=== PATIENT | female | born 1990 | race Caucasian/White ===

== ENCOUNTER 2016-11-01 11:58 | Emergency (ER) | payer BC ==
[2016-11-01 12:37] VITALS: BP 120/83
--- NOTE | 2016-11-01 12:46 | UC ---
Throat Pain/Nasal Angel HPI - HPI Summary HPI Summary: complaint of nasal congestion and cough that started 7 days ago started to have sore throat night intermittent headache dx with URI at [facility] 10/30/16 denies ear pain thinks she might have had a fever denies N/V/D taking OTC cold and flu medicine with some relief tried tussin DM without relief - History of Current Complaint Stated Complaint: SORE THROAT COUGH Time Seen by Provider: 11/01/16 12:35 Hx Obtained From: Patient Hx Last Menstrual Period: 10/21/16 - Allergies/Home Medications Allergies/Adverse Reactions: Allergies Allergy/AdvReac Type Severity Reaction Status Date / Time No Known Allergies Allergy Verified 11/01/16 12:37 Home Medications: Home Medications NK [No Home Medications Reported] 11/01/16 [History Confirmed 11/01/16] PMH/Surg Hx/FS Hx/Imm Hx Previously Healthy: No - uri - Surgical History Surgical History: Yes Surgery Procedure, Year, and Place: Ear Tubes as a child. , [facility] - Family History Known Family History: Positive: None, Unknown Negative: Diabetes - Social History Occupation: Employed Full-time Lives: With Family Alcohol Use: None Substance Use Type: None Smoking Status (MU): Former Smoker Type: Cigarettes Length of Time of Smoking/Using Tobacco: 3 Years Have You Smoked in the Last Year: No When Did the Patient Quit Smoking/Using Tobacco: 2012 - Immunization History Most Recent Influenza Vaccination: January 2014 Review of Systems Constitutional: Negative Skin: Negative Eyes: Negative ENT: Sore Throat, Nasal Discharge Respiratory: Cough Cardiovascular: Negative Gastrointestinal: Negative Genitourinary: Negative Motor: Negative Neurovascular: Negative Musculoskeletal: Negative Neurological: Negative Psychological: Negative All Other Systems Reviewed And Are Negative: Yes Physical Exam Triage Information Reviewed: Yes Appearance: No Pain Distress, Well-Nourished Vital Signs: Initial Vital Signs Temp 98.6 F 11/01/16 12:32 Pulse 56 11/01/16 12:32 Resp 16 11/01/16 12:32 BP 120/83 11/01/16 12:32 Pulse Ox 100 11/01/16 12:32 Vital Signs Reviewed: Yes Eyes: Positive: Conjunctiva Clear ENT: Positive: Pharyngeal erythema, Nasal congestion, TMs normal, Other: - no sinus tenderness. Negative: TM bulging, TM red Neck: Positive: No Lymphadenopathy Respiratory: Positive: Lungs clear, Normal breath sounds, No respiratory distress Cardiovascular: Positive: RRR, No Murmur, Pulses Normal Abdomen Description: Positive: Nontender, Soft Bowel Sounds: Positive: Present Musculoskeletal: Positive: No Edema Neurological: Positive: Alert Psychological Exam: Normal Skin Exam: Normal Throat Pain/Nasal Course/Dx - Differential Dx/Diagnosis Differential Diagnosis/HQI/PQRI: Pharyngitis, URI Provider Diagnoses: URI, pharyngitis Discharge - Discharge Plan Condition: Stable Disposition: HOME Patient Education Materials: Upper Respiratory Infection (ED) Additional Instructions: PHARYNGITIS (Sore Throat) What is Pharyngitis? The medical name for a sore throat is Pharyngitis. It is caused by an infection or irritation of your throat or tonsils. The infection can be caused by a virus or by bacteria. Not everyone with Pharyngitis needs antibiotics. Antibiotics will not make viral infections better, and they will not help a sore throat caused by irritation. Symptoms May Include: Sore throat Swelling of the glands in the neck Trouble or pain with swallowing Fever Headache Cough Extreme tiredness Ear pain Treatment Recommendations: Gargle every few hours with a solution of 1/4 teaspoon of salt dissolved in 1/ 2 cup of warm water. Drink plenty of warm beverages, like tea with lemon, (with or without honey) and soup. You may eat and drink cold foods and liquids like frozen yogurt, popsicles, and ice water if that makes your throat feel better. The goal is to keep you well hydrated. Use a "cool-mist" vaporizer or humidifier in the room where you spend most of your time. If you get a sore throat often, consider adding an electronic air filter and humidifier to your furnace system. Don't smoke. Do not eat spicy foods. Take medicine exactly as prescribed. If you do not think it is helping, call your healthcare provider. Do not increase how much or how often you take it without getting their OK first. Non-prescription anti-inflammatory medicine like ibuprofen (Motrin, Advil) or naproxen (Aleve) may help lessen the pain. You should not take these medicines if you have had bleeding in your stomach in the past. Acetaminophen ( Tylenol) is another choice of medicine that may help the pain. If pain medicine that makes you tired or sleepy or contains narcotics is prescribed, you should not drink, drive, or participate in any other activities that you need to be clear-headed for. Please keep all medicines out of the reach of children. Do not get in close contact with anyone you know who has a sore throat. Use throat lozenges (Cepostat, [place], etc.) or suck on hard candy for temporary relief of the pain with swallowing. (Do not give to children under age 5.) Call Your Doctor or Return Here IF: Your symptoms do not start to get better within 7 days or you become worse. You have a fever over 101.0 F orally. You cant swallow liquids or saliva. You are drooling. You start to have trouble breathing. You start to have a rash. You start to have a stiff neck. You start to have pain in your chest. You start to have any symptoms that are new or worry you.
== END 2016-11-01 13:14 | disposition home or self-care (01) ==
LOC: UCCORT 11:58
DX: J06.9 Acute upper respiratory infection, unspecified (principal); J02.9 Acute pharyngitis, unspecified; Z87.891 Personal history of nicotine dependence
CPT/HCPCS: 87651; 99212; G0463

== ENCOUNTER 2017-09-08 12:28 | Emergency (ER) | payer BC ==
[2017-09-08 12:48] VITALS: BP 126/70
--- NOTE | 2017-09-08 13:08 | ED ---
GI/ HPI - HPI Summary HPI Summary: 26 yr old female presents here with feeling like she has mild edema to the hands, and she is a week late for her period. No abdominal pain at this point. Had mild cramping over past day or so, but no sever pain in pelvis. No bleeding, no vaginal discharge, no fever or chills. The patient has been having increased frequency of urination, breast tenderness , fatigue. She took a home test a few days ago that is positive. She had a D and C for a demise at 14 weeks in the past; she had a c section at 37 weeks with her last due to late development of pre eclampsia. - History of Current Complaint Chief Complaint: UCGeneralIllness Time Seen by Provider: 09/08/17 12:44 Stated Complaint: - HANDS/FEET SWELLING/CRAMPS Hx Last Menstrual Period: end of July Pain Intensity: 3 - Allergy/Home Medications Allergies/Adverse Reactions: Allergies Allergy/AdvReac Type Severity Reaction Status Date / Time No Known Allergies Allergy Verified 09/08/17 12:41 PMH/Surg Hx/FS Hx/Imm Hx - Surgical History Surgery Procedure, Year, and Place: Ear Tubes as a child. , 2013, [facility] Infectious Disease History: No Infectious Disease History: Denies: History Other Infectious Disease, Traveled Outside the [place] in Last 30 Days - Family History Known Family History: Positive: None, Unknown Negative: Diabetes - Social History Lives: With Family Alcohol Use: None Substance Use Type: Reports: None Smoking Status (MU): Former Smoker Type: Cigarettes Length of Time of Smoking/Using Tobacco: 3 Years Have You Smoked in the Last Year: No Review of Systems Constitutional: Negative Positive: frequency. Negative: burning, dysuria, discharge, flank pain, hematuria, incontinence, pain, urgency Positive: Edema - mild diffusely All Other Systems Reviewed And Are Negative: Yes Physical Exam Triage Information Reviewed: Yes Vital Signs On Initial Exam: Initial Vitals Temp Pulse Resp BP Pulse Ox 98.6 F 92 18 126/70 99 09/08/17 12:42 09/08/17 12:42 09/08/17 12:42 09/08/17 12:42 09/08/17 12:42 Vital Signs Reviewed: Yes Appearance: Positive: Well-Appearing, No Pain Distress Skin: Positive: Warm, Skin Color Reflects Adequate Perfusion Head/Face: Positive: Normal Head/Face Inspection Eyes: Positive: EOMI ENT: Positive: Normal ENT inspection Neck: Positive: Nontender Respiratory/Lung Sounds: Positive: Clear to Auscultation, Breath Sounds Present Cardiovascular: Positive: RRR. Negative: Murmur Abdomen Description: Positive: Nontender. Negative: CVA Tenderness (R), CVA Tenderness (L) Musculoskeletal: Positive: Strength/ROM Intact, Other - no noticable edema to the legs or arms.. Negative: Edema Left, Edema Right Neurological: Positive: Sensory/Motor Intact, Alert, Oriented to Person Place, Time, CN Intact II-III, Normal Gait, Speech Normal Psychiatric: Positive: Normal - [place] Coma Scale Best Eye Response: 4 - Spontaneous Best Motor Response: 6 - Obeys Commands Best Verbal Response: 5 - Oriented Coma Scale Total: 15 Diagnostics - Vital Signs Vital Signs Temp Pulse Resp BP Pulse Ox 09/08/17 12:42 98.6 F 92 18 126/70 99 - Laboratory Lab Results: Lab Results 09/08/17 09/08/17 Range/Units 12:54 12:57 POC Urine Color Yellow POC Urine Clarity Clear POC Urine pH 5.5 (5-9) POC Ur Specif Guion <= 1.005 L (1.010-1.030) POC Urine Protein Negative (Negative) POC Ur Glucose (UA) Negative (Negative) POC Urine Ketones Negative (Negative) POC Urine Blood Negative (Negative) POC Urine Nitrite Negative (Negative) POC Urine Bilirubin Negative (Negative) POC Urine Urobilinogen 0.2 (Negative) POC U Leukocyte Esteras Negative (Negative) POC Ur Test Positive A (Negative) Lab Statement: Any lab studies that have been ordered have been reviewed, and results considered in the medical decision making process. GIGU Course/Dx - Course Course Of Treatment: 26 yr old with early . No UTI. Neg urine dip. - Diagnoses Provider Diagnoses: Discharge - Sign-Out/Discharge Documenting (check all that apply): Discharge/Admit/Transfer - Discharge Plan Condition: Good Disposition: HOME Patient Education Materials: (ED) Referrals: Valdez Mena MD [Primary Care Provider] - 2 Days Edu Sheridan MD [Medical Doctor] - As Soon As Possible - Billing Disposition and Condition Condition: GOOD Disposition: HOME
== END 2017-09-08 13:17 | disposition home or self-care (01) ==
LOC: UCCORT 12:28
DX: Z32.01 Encounter for pregnancy test, result positive (principal); Z87.891 Personal history of nicotine dependence
CPT/HCPCS: 81003; 84702; 99211; G0463

== ENCOUNTER 2017-09-12 20:03 | Emergency (ER) | payer BC ==
[2017-09-12 20:23] VITALS: BP 122/60
--- NOTE | 2017-09-12 20:33 | UC ---
Complaint Female HPI - HPI Summary HPI Summary: Pt c/o sudden onset of dysuria X 4 hours. Pt is 6 weeks . - History Of Current Complaint Stated Complaint: URINARY Hx Obtained From: Patient Hx Last Menstrual Period: end of 07/2017 ?: Yes Onset/Duration: Sudden Onset Timing: Constant Severity Initially: Mild Severity Currently: Mild Pain Intensity: 0 Character: Burning Aggravating Factor(s): Urination Alleviating Factor(s): Nothing Associated Signs And Symptoms: Positive: Negative - Risk Factors Ectopic Risk Factor: Negative Ovarian Torsion Risk Factor: Negative - Allergies/Home Medications Allergies/Adverse Reactions: Allergies Allergy/AdvReac Type Severity Reaction Status Date / Time No Known Allergies Allergy Verified 09/12/17 20:23 Home Medications: Home Medications Vitamin TAB* 1 tab PO DAILY 09/12/17 [History Confirmed 09/12/17] PMH/Surg Hx/FS Hx/Imm Hx Previously Healthy: Yes - Surgical History Surgical History: Yes Surgery Procedure, Year, and Place: Ear Tubes as a child. , 2012, [facility] - Family History Known Family History: Positive: None, Unknown Negative: Diabetes - Social History Occupation: Employed Full-time Lives: With Family Alcohol Use: None Substance Use Type: None Smoking Status (MU): Former Smoker Type: Cigarettes Length of Time of Smoking/Using Tobacco: 3 Years Have You Smoked in the Last Year: No When Did the Patient Quit Smoking/Using Tobacco: 2012 - Immunization History Most Recent Influenza Vaccination: January 2014 Review of Systems Constitutional: Negative Skin: Negative Eyes: Negative ENT: Negative Respiratory: Negative Cardiovascular: Negative Gastrointestinal: Negative Genitourinary: Dysuria, Frequency, Urgency Motor: Negative Neurovascular: Negative Musculoskeletal: Negative Neurological: Negative Psychological: Negative Is Patient Immunocompromised?: No All Other Systems Reviewed And Are Negative: Yes Physical Exam Triage Information Reviewed: Yes Appearance: Well-Appearing Vital Signs: Initial Vital Signs Temp 98.1 F 09/12/17 20:18 Pulse 69 09/12/17 20:18 Resp 17 09/12/17 20:18 BP 122/60 09/12/17 20:18 Pulse Ox 100 09/12/17 20:18 Vital Signs Reviewed: Yes Eye Exam: Normal ENT Exam: Normal ENT: Positive: Hearing grossly normal Neck exam: Normal Respiratory: Positive: No respiratory distress Abdomen Description: Positive: Nontender Musculoskeletal Exam: Normal Neurological Exam: Normal Psychological Exam: Normal Skin Exam: Normal Complaint Female Dx - Differential Dx/Diagnosis Differential Diagnosis/HQI/PQRI: Urinary Tract Infection Provider Diagnoses: UTI Discharge - Sign-Out/Discharge Documenting (check all that apply): Discharge/Admit/Transfer - Discharge Plan Condition: Stable Disposition: HOME Prescriptions: Cephalexin CAP* [Keflex 500 CAP*] 500 mg PO Q12H #14 cap Patient Education Materials: Urinary Tract Infection in Women (ED) Referrals: Valdez Mena MD [Primary Care Provider] - If Needed - Billing Disposition and Condition Condition: STABLE Disposition: HOME
[2017-09-12] MEDS ORDERED: Cephalexin CAP* 500 MG PO ONE (20:35)
== END 2017-09-12 20:45 | disposition home or self-care (01) ==
LOC: UCCORT 20:03
DX: N39.0 Urinary tract infection, site not specified (principal); Z87.891 Personal history of nicotine dependence
CPT/HCPCS: 81003; 87077; 87086; 87186; 99212; A9270-GY; G0463

== ENCOUNTER 2017-10-07 08:58 | Emergency (ER) | payer BC ==
[2017-10-07 09:55] VITALS: BP 121/66
--- NOTE | 2017-10-07 10:49 | UC ---
Throat Pain/Nasal Angel HPI - HPI Summary HPI Summary: 26 y/o female presents to the urgent care c/o sore throat and Rt side ear pain since last night. Pt states pain w/ swallowing is 4/10. Pt has not taking anything to alleviate symptoms since she is 10 weeks . LMP: 07/09/2017. Pt also states nasal congestion w/ clear nasal discharge. Pt denies fever, cough , SOB, chest pain, abdominal pain, N/V/D. - History of Current Complaint Chief Complaint: UCGeneralIllness Stated Complaint: COUGH/ST Time Seen by Provider: 10/07/17 10:46 Hx Obtained From: Patient Hx Last Menstrual Period: end of 07/2017 ?: Yes Onset/Duration: Gradual Onset, Lasting Days - 1 day, Still Present, Worse Since - this morning Severity: Moderate Pain Intensity: 4 Pain Scale Used: 0-10 Numeric Cough: None Associated Signs & Symptoms: Positive: Dysphagia, Nasal Discharge - clear. Negative: Fever - Epiglottits Risk Factors Epiglottis Risk Factors: Negative - Allergies/Home Medications Allergies/Adverse Reactions: Allergies Allergy/AdvReac Type Severity Reaction Status Date / Time No Known Allergies Allergy Verified 09/12/17 20:23 Home Medications: Home Medications Doxylamine Succinate [Unisom] 25 mg PO DAILY 10/07/17 [History Confirmed ] Pyridoxine HCl (Vitamin B6) [Vitamin B-6] 25 mg PO DAILY 10/07/17 [History Confirmed 10/07/17] PMH/Surg Hx/FS Hx/Imm Hx Previously Healthy: Yes - Pt denies PMHX - Surgical History Surgical History: Yes Surgery Procedure, Year, and Place: Ear Tubes as a child. , 2013, [facility]. D&C - Family History Known Family History: Positive: None - Pt denies FMHX Negative: Diabetes - Social History Occupation: Employed Full-time Lives: With Family Alcohol Use: None Substance Use Type: None Smoking Status (MU): Former Smoker Type: Cigarettes Length of Time of Smoking/Using Tobacco: 3 Years Have You Smoked in the Last Year: No When Did the Patient Quit Smoking/Using Tobacco: 2012 - Immunization History Most Recent Influenza Vaccination: January 2014 Review of Systems Constitutional: Negative Skin: Negative Eyes: Negative ENT: Sore Throat, Ear Ache - RT ear pain, Nasal Discharge - clear Respiratory: Negative Cardiovascular: Negative Gastrointestinal: Negative Genitourinary: Negative Motor: Negative Neurovascular: Negative Musculoskeletal: Negative Neurological: Negative Psychological: Negative Is Patient Immunocompromised?: No All Other Systems Reviewed And Are Negative: Yes Physical Exam - Summary Physical Exam Summary: VITAL SIGNS: Reviewed. GENERAL: Patient is a well developed and nourished female who is sitting comfortable in the examining table. Patient is not in any acute respiratory distress. HEAD AND FACE: No signs of trauma. No ecchymosis, hematomas or skull depressions. No sinus tenderness. EYES: PERRLA, EOMI x 2, No injected conjunctiva, no nystagmus. No photophobia. EARS: Hearing grossly intact. Ear canals and tympanic membranes are within normal limits. MOUTH: Positive pharynx with erythema, exudates, palatal petechiae. B/L tonsillar enlargement with exudate. Uvula in midline. NECK: Supple, trachea is midline, Positive anterior cervical lymphadenopathy, no JVD, no carotid bruit, no c-spine tenderness, neck with full ROM. No meningeal signs, no Kernig's or brudzinskis signs. CHEST: Symmetric, no tenderness at palpation LUNGS: Clear to auscultation bilaterally. No wheezing or crackles. CVS: Regular rate and rhythm, S1 and S2 present, no murmurs or gallops appreciated. ABDOMEN: Soft, non-tender. No signs of distention. No rebound no guarding, and no masses palpated. Bowel sounds are normal. EXTREMITIES: FROM in all major joints, no edema, no cyanosis or clubbing. NEURO: Alert and oriented x 3. No acute neurological deficits. Speech is normal and follows commands. SKIN: Dry and warm Triage Information Reviewed: Yes Vital Signs: Initial Vital Signs Temp 98.6 F 10/07/17 09:50 Pulse 81 10/07/17 09:50 Resp 16 10/07/17 09:50 BP 121/66 10/07/17 09:50 Pulse Ox 100 10/07/17 09:50 Throat Pain/Nasal Course/Dx - Course Course Of Treatment: 26 y/o female presents to the urgent care c/o sore throat and Rt side ear pain since last night. Pt states pain w/ swallowing is 4/10. Pt has not taking anything to alleviate symptoms since she is 10 weeks . LMP: 07/09/2017. Pt also states nasal congestion w/ clear nasal discharge. Pt denies fever, cough, SOB, chest pain, abdominal pain, N/V/D.Hx obtained. Pt w/ pharyngitis on examination. Rapid strep ordered, result: negative. Viral pharyngitis.Pt Rx ibuprofen PO to alleviates symptoms of pain and swelling. Advised on hand washing to avoid spreading. Pt advised to rest, eat well and avoid strenuous exercise. If symptoms do not improve or worsen advised to return to the urgent care or f/u with her PCP for further evaluation and treatment. Pt understood and agreed - Differential Dx/Diagnosis Differential Diagnosis/HQI/PQRI: Laryngitis, Mononucleosis, Pharyngitis, Tonsillitis, URI Provider Diagnoses: 1- Viral pharyngitis Discharge - Sign-Out/Discharge Documenting (check all that apply): Discharge/Admit/Transfer - D/C home - Discharge Plan Condition: Stable Disposition: HOME Patient Education Materials: Pharyngitis (ED) Referrals: Valdez Mena MD [Primary Care Provider] - 3 Days Additional Instructions: 1-Please take Tylenol PO q6-8hrs prn as instructed after meals to alleviate pain and swelling. Increase fluid intake, eat well, rest and avoid strenuous exercise 2-If symptoms do not improve or worsen please return to the urgent care or f/u with your PCP for further evaluation and treatment. - Billing Disposition and Condition Condition: STABLE Disposition: HOME
== END 2017-10-07 11:28 | disposition home or self-care (01) ==
LOC: UCCORT 08:58
DX: J02.8 Acute pharyngitis due to other specified organisms (principal); Z87.891 Personal history of nicotine dependence
CPT/HCPCS: 87651; 99211; G0463

== ENCOUNTER 2018-04-28 05:55 | Inpatient (IN) | payer BC, OTHER ==
[~2018-04-28 05:55] MED LIST: Buffered Lidocaine 0.9% SYRIN* 5 ML/SYR SYRINGE INTRADERM ONE; ceFOXitin 2 GM IVPREMIX* 2 GM/50 ML BAG IVPB SCH
[2018-04-28] MEDS ORDERED: Lactated Ringers 1000 ML Bag* 1,000 ML IV SCH ×2 (06:00→09:00)
[2018-04-28] MEDS ORDERED: Famotidine IV* 10 MG/ML 2 ML (20 mg) IV ONE (06:00)
[2018-04-28] MEDS ORDERED: Morphine PF AMP (0.5MG/ML)* 5 MG/10 ML AMP ONE (07:35)
[2018-04-28] MEDS ORDERED: KETAMINE HCL* 50 MG/ML 10 ML VIAL ONE (07:35)
[2018-04-28] MEDS ORDERED: fentaNYL* 50 MCG/ML 2 ML VIAL (100 MCG VIAL) ONE (07:35)
[2018-04-28] MEDS ORDERED: Midazolam* 1 MG/ML 5 ML VIAL (5 MG) ONE (07:35)
[2018-04-28] MEDS: Scopolamine 1.5 mg* PATCH TRANSDERM PRN (08:00)
[2018-04-28] MEDS ORDERED: oxyCODONE/Acetamin 5/325 MG* TAB PO PRN ×2 (08:19→08:55)
[2018-04-28] MEDS ORDERED: DiMENhydriNATE IV* 50 MG/ML VIAL IV PUSH PRN (08:19)
[2018-04-28] MEDS ORDERED: Naloxone* 2 MG in NS 0.9% 250 ML* 250 ML IV PRN (08:19)
[2018-04-28] MEDS ORDERED: Nalbuphine* 10 MG/ML 1 ML VIAL IV PRN (08:19)
[2018-04-28] MEDS ORDERED: Ondansetron INJ* 2 MG/ML VIAL IV PRN (08:19)
[2018-04-28] MEDS ORDERED: Naloxone* 0.4 MG/ML 1 ML VIAL IV PRN ×2 (08:19→08:21)
[2018-04-28] MEDS ORDERED: PROCHLORPERAZINE INJ 5 MG/ML 2 ML VIAL IV PRN (08:19)
[2018-04-28] MEDS ORDERED: fentaNYL* 50 MCG/ML 2 ML VIAL (100 MCG VIAL) IV PRN (08:21)
[2018-04-28] MEDS ORDERED: Witch Hazel PAD* JAR TOPICAL PRN (08:55)
[2018-04-28] MEDS ORDERED: Dibucaine 1% 28.35 GM TUBE PR PRN (08:55)
[2018-04-28] MEDS ORDERED: Glycerin ADULT SUPP PR PRN (08:55)
[2018-04-28] MEDS: Docusate CAP* 100 MG PO SCH ×3 (09:00→20:59)
[2018-04-28] MEDS ORDERED: PROCHLORPERAZINE INJ 5 MG/ML 2 ML VIAL ONE (09:01)
[2018-04-28] MEDS ORDERED: Dexamethasone IV* 4 MG/ML 1 ML (4 MG) ONE (09:01)
[2018-04-28] MEDS ORDERED: Bupivacaine-MPF SPINAL* 7.5 MG/ML - 2ML AMP ONE (09:01)
[2018-04-28] MEDS ORDERED: EPHEDrine (Pressors)* 50 MG/ML VIAL ONE (09:01)
[2018-04-28] MEDS ORDERED: Bupivacaine 0.25% SDV PF* 10 ML VIAL INJ ONE (09:01)
[2018-04-28] MEDS ORDERED: Scopolamine 1.5 mg* PATCH ONE (09:01)
[2018-04-28] MEDS ORDERED: Ketorolac INJ* 30 MG/ML 1 ML VIAL ONE (09:01)
[2018-04-28] MEDS ORDERED: Glycopyrrolate IV* 0.2 MG/ML 1 ML VIAL ONE (09:01)
[2018-04-28] MEDS ORDERED: Ondansetron INJ* 2 MG/ML VIAL ONE (09:01)
[2018-04-28] MEDS ORDERED: Lidocaine 2% PF * 5 ML VIAL ONE (09:01)
[2018-04-28] MEDS ORDERED: Phenylephrine INJ* 10 MG/ML 1 ML VIAL (10 MG) ONE (09:01)
[2018-04-28] MEDS: Simethicone TAB* 80 MG TAB.CHEW PO SCH ×3 (12:59→20:59)
[2018-04-28] MEDS: Ketorolac INJ* 30 MG/ML 1 ML VIAL IV PRN ×2 (16:48→23:50)
[2018-04-29] MEDS: Ibuprofen TAB* 600 MG PO PRN ×3 (00:01→12:48)
[2018-04-29] MEDS ORDERED: diPHENhydraMINE PO* 25 MG PO ONE (01:00)
[2018-04-29] MEDS: oxyCODONE/Acetamin 5/325 MG* TAB PO PRN ×4 (04:12→17:09)
[2018-04-29 06:46] LABS: ABS Basophils 0.1 10^3/ul (0-0.2); ABS Eosinophils 0 10^3/ul (0-0.6); ABS Lymphocytes 1.5 10^3/ul (1.0-4.8); ABS Neutrophils 9.9 10^3/ul (1.5-7.7); ABS Nucleated RBC 0 10^3/ul; Eosinophil % 0.4 %; Hematocrit 25 % (35-47); Hemoglobin 8.2 g/dl (12.0-16.0); Lymphocyte % 12.3 %; Mean Corpuscular HGB Conc 32 g/dl (31-36); Mean Corpuscular Hemoglobin 27 pg (27-31); Mean Corpuscular Volume 84 fL (80-97); Mean Platelet Volume 9.2 fL (7.4-10.4); Nucleated Red Blood Cells % 0; Platelet Count 190 10^3/ul (150-450); Red Blood Count 3.01 10^6/ul (4.00-5.40); Red Cell Distribution Width 16 % (10.5-15); White Blood Count 12.5 10^3/ul (3.5-10.8)
[2018-04-29] MEDS ORDERED: Ammonia Inhalant* 1 EA AMP ONE (07:25)
[2018-04-29] MEDS: Ferrous Gluconate TAB* 324 MG TAB PO SCH (08:19)
[2018-04-29] MEDS: Simethicone TAB* 80 MG TAB.CHEW PO SCH ×4 (08:20→19:43)
[2018-04-29] MEDS: Docusate CAP* 100 MG PO SCH ×3 (08:20→19:39)
--- NOTE | 2018-04-29 10:43 | OP ---
DATE OF OPERATION: 04/28/18 - ROOM #116 DATE OF : 89 SURGEON: Nimco Amor MD [employer] OPERATIONS SPECIALIST: Mi Campo CNM, and Martina Burrell ANESTHESIOLOGIST: Dr. Vogel. ANESTHESIA: Spinal. PRE-OPERATIVE DIAGNOSIS: Intrauterine at 39-0/7 week, desires repeat section. POST-OPERATIVE DIAGNOSIS: Intrauterine at 39-0/7 week, desires repeat section, delivered; dense anterior uterine wall adhesions. OPERATIVE PROCEDURE: Repeat low transverse section with vacuum extraction and lysis of adhesions. ESTIMATED BLOOD LOSS: 500 cc. URINE OUTPUT: 200 cc. FLUIDS: 2300 cc of crystalloid. FINDINGS: Revealed a vertex male Apgars 9 at one minute, 9 at five minutes, weight is 7 pounds 13 ounces. No meconium. Three-vessel cord, placenta intact, manually extracted. Uterine cavity without evidence of retained placental tissue or membranes. Normally palpated tubes and ovaries. There is a dense anterior uterine wall adhesion to the peritoneum, which was reduced with two separate pedicles. Omental adhesion above this, which was reduced. COMPLICATIONS: None apparent. DISPOSITION: Stable to recovery room. DESCRIPTION OF PROCEDURE: The patient was placed in dorsal lithotomy position. Abdomen was prepped and draped in a sterile standard fashion. Anesthesia was tested to appropriate level. The patient was identified with universal protocol. After documenting adequate level of the anesthesia, incision was made with scalpel through prior incision. This was then carried down through to the fascia. Fascia was scored in the midline and extended laterally and superiorly using curved Sheridan scissors. The peritoneum was entered bluntly. At this point , we noted her to have a dense anterior uterine wall adhesion in the lower third of the uterus and not at the lower uterine segment site. Bladder blade was inserted. The lower uterine segment was tented up with an Allis. An incision was made with scalpel. This was carried down through. Incision was extended laterally and superiorly using bandage scissors. Amniotomy was cleared for clear fluid. 's head was delivered with vacuum assistance. Anterior posterior shoulder delivered. Cord was allowed to pulsate and was milked for approximately 60 seconds. Cord was then doubly clamped and cut. The was handed to awaiting hepatology physician, Dr. Martinez. Appropriate cord blood was then obtained. Placenta was then manually extracted. Uterine cavity was explored, was noted to be free of any membranes or more placental tissue and the uterine incision itself was approximated using in 2 layers, first layer a running locked 0-Vicryl, second layer running imbricated. At that point, the anterior uterine wall adhesions were delineated. A Erica was placed across the base and back-clamped with a Erica, transected with Sheridan scissors and suture ligated in a Marina fashion using 0-Vicryl, on both afferent and efferent pedicles. There was a second adhesion, which was isolated and clamped with Erica again x2, transected with Sheridan scissors and suture ligated again using 0- Vicryl, which was just adjacent to the other adhesion. Both afferent and efferent pedicles were tied off in a Marina fashion. The 2 areas were imbricated in a [id number] fashion for complete burying of the 2 separate pedicles and hemostasis was noted. There was a small omental adhesion noted to the anterior surface of the uterus above these adhesions and this was also clamped, back clamped with Erica, transected sharply and suture was ligated using 3-0 Vicryl. The peritoneum was then identified clearly, clamped with Erica's and colic gutters were lavaged. Hemostasis was assured. The hysterectomy site and the resection site and the peritoneum was then reapproximated using 3-0 Vicryl in a running fashion. Subfascial area was visualized. Hemostasis was assured and the fascia was then reapproximated using 0-Vicryl x2 in a running fashion. Fascia was then reapproximated using 0 Vicryl x2 in a running fashion. Subcutaneous tissue was lavaged. Hemostasis assured and the skin was then reapproximated using 4-0 Monocryl in a subcuticular fashion. Mastisol and Steri -Strips were applied. All sponge, instruments, and blade counts were correct throughout the case. The patient tolerated the procedure well and went to recovery room in stable condition. [id number]/[facility] #: [id number] CYRIL
[2018-04-29] MEDS: Scopolamine 1.5 mg* PATCH TRANSDERM PRN (18:16)
[2018-04-29] MEDS ORDERED: Ondansetron ODT TAB* 4 MG SL PRN (19:15)
[2018-04-29] MEDS ORDERED: Ondansetron ODT TAB* 4 MG ONE (19:20)
[2018-04-29] MEDS ORDERED: Ondansetron INJ* 2 MG/ML VIAL IV PRN (20:05)
[2018-04-29] MEDS: Ketorolac INJ* 30 MG/ML 1 ML VIAL IV PUSH PRN (20:32)
[2018-04-29] MEDS ORDERED: Lactated Ringers 1000 ML Bag* 1,000 ML IV SCH (21:00)
[2018-04-30] MEDS: Ketorolac INJ* 30 MG/ML 1 ML VIAL IV PUSH PRN (04:18)
[2018-04-30] MEDS: Docusate CAP* 100 MG PO SCH ×2 (12:14→21:36)
[2018-04-30] MEDS: Ferrous Gluconate TAB* 324 MG TAB PO SCH ×2 (12:14→21:35)
[2018-04-30] MEDS: Simethicone TAB* 80 MG TAB.CHEW PO SCH ×3 (12:14→21:36)
[2018-04-30] MEDS: Acetaminophen TAB* 325 MG PO PRN ×2 (17:57→21:36)
[2018-05-01] MEDS: Acetaminophen TAB* 325 MG PO PRN ×3 (01:29→12:42)
[2018-05-01 07:47] VITALS: BP 135/77
[2018-05-01] MEDS ORDERED: Scopolamine PATCH Remove* 1 NOTE MISC PATCH OFF PRN (08:20)
[2018-05-01] MEDS: Docusate CAP* 100 MG PO SCH (08:27)
[2018-05-01] MEDS: Simethicone TAB* 80 MG TAB.CHEW PO SCH ×3 (08:27→12:42)
[2018-05-01] MEDS: Ferrous Gluconate TAB* 324 MG TAB PO SCH (08:27)
== END 2018-05-01 13:44 | disposition home or self-care (01) | DRG 540 ==
LOC: MCHOB 05:55
PROVIDERS: ADMIT Obstetrics & Gynecology; ATTEND Obstetrics & Gynecology
PROC: 4A1HXCZ Monitoring of Products of Conception, Cardiac Rate, External Approach (ICD-10-PCS; 2018-04-28)
PROC: 0DNW0ZZ Release Peritoneum, Open Approach (ICD-10-PCS; 2018-04-28)
PROC: 10D00Z1 Extraction of Products of Conception, Low, Open Approach (ICD-10-PCS; principal; 2018-04-28 07:45)
DX: O34.211 Maternal care for low transverse scar from previous cesarean delivery (principal); O99.89 Other specified diseases and conditions complicating pregnancy, childbirth and the puerperium; N73.6 Female pelvic peritoneal adhesions (postinfective); Z3A.39 39 weeks gestation of pregnancy; Z37.0 Single live birth; O90.81 Anemia of the puerperium
CPT/HCPCS: 36415; 85025; A9270-GY; J0694; J0780; J1100; J1885; J2250; J2300; J2405; J3010; J3490